=== PATIENT | female | born 1970 | race Asian ===

== ENCOUNTER 2016-06-19 14:42 | Inpatient (IN) | payer BC ==
[~2016-06-19] VITALS: Ht 162.6 cm; Wt 72.6 kg
[2016-06-19 16:24] LABS: *BILIRUBIN,URIN NEGATIVE (NEGATIVE); *BLOOD, URINE 3+ (NEGATIVE); *CLARITY,URINE CLOUDY (CLEAR); *COLOR,URINE YELLOW (YELLOW); *KETONES,URINE NEGATIVE (NEGATIVE); *PROTEIN,URINE TRACE (NEGATIVE); LEUKOCYTE ESTERASE ,URINE NEGATIVE (NEGATIVE); NITRITE, URINE NEGATIVE (NEGATIVE); PH,URINE 5.5 (5.0-8.0); UGLUCOSE NEGATIVE (NEGATIVE)
[2016-06-19 16:30] LABS: BASOPHILS % (AUTO) 0.4 % (0.0-2.0); EOSINOPHILS # (AUTO) 0.1 K/uL (0.0-0.7); EOSINOPHILS % (AUTO) 0.9 % (0.0-7.0); HEMATOCRIT 39.4 % (31.2-41.9); HEMOGLOBIN 13.7 g/dL (10.9-14.3); LYMPHOCYTES # (AUTO) 1.5 K/uL (20.0-40.0); LYMPHOCYTES % (AUTO) 13.2 % (20.5-51.5); MEAN CORPUSCULAR HGB CONC 35 g/dL (32.3-35.6); MONOCYTES # (AUTO) 0.3 K/uL (2.0-10.0); NEUTROPHILS # (AUTO) 9.2 K/uL (1.8-8.9); NEUTROPHILS % (AUTO) 82.5 % (38.5-71.5); PLATELET COUNT (AUTO) 297 K/uL (179-408); RED BLOOD CELL COUNT(AUTO) 4.43 MIL/uL (3.63-4.92); RED CELL DISTRIBUTION WIDTH 12.1 % (12.3-17.7); WHITE BLOOD COUNT (AUTO) 11.1 K/uL (3.8-11.8)
[2016-06-19 16:43] LABS: CREATININE 0.7 mg/dL (0.6-1.3); POTASSIUM 3.6 mmol/L (3.5-5.1)
[2016-06-19 16:49] LABS: ALBUMIN 4.1 g/dL (3.4-5.0); BILIRUBIN,TOTAL 0.5 mg/dL (0.2-1.0); TOTAL PROTEIN, SERUM 7.8 g/dL (6.4-8.2)
[2016-06-19 17:04] LABS: MUCUS,URINE MANY /LPF (0-FEW); RBC,URINE 80-100 /HPF (0-3); SQUAMOUS EPITHELIAL CELL,UR FEW /HPF (NONE SEEN); URINE AMORPHOUS URATE MODERATE /HPF; WBC,URINE 0-3 /HPF (0-3)
[2016-06-19 17:21] LABS: NEUTROPHILS % (MANUAL) 73 % (42-75)
[2016-06-19 17:22] LABS: BAND % (MANUAL) 10 % (0-10); LYMPHOCYTES % (MANUAL) 15 % (20-40); MONOCYTES % (MANUAL) 2 % (2-10); PLATELET ESTIMATE ADEQUATE
--- NOTE | 2016-06-19 18:44 | NUR ---
Dr Murphy at bedside for eval.
[2016-06-19] MEDS ORDERED: KETOROLAC TROMETHAMINE 30 MG INJ IVP ONE (19:15)
[2016-06-19] MEDS ORDERED: KETOROLAC TROMETHAMINE 30 MG INJ ONE (19:26)
--- NOTE | 2016-06-19 19:46 | NUR ---
Ultrasound at bedside
[2016-06-19] MEDS ORDERED: ONDANSETRON IV *ER 4 MG/2 ML VIAL IV ONE (21:15)
[2016-06-19] MEDS ORDERED: MORPHINE SULFATE 4 MG/1 ML DISP.SYRIN IV ONE (21:15)
[2016-06-19] MEDS ORDERED: IV NS 1000 ML 1,000 ML IV PRN (21:26)
[2016-06-19] MEDS ORDERED: MORPHINE SULFATE 4 MG/1 ML DISP.SYRIN ONE (21:26)
[2016-06-19] MEDS ORDERED: ONDANSETRON 4 MG/2 ML VIAL ONE (21:26)
[2016-06-19] MEDS ORDERED: ONDANSETRON 4 MG/2 ML VIAL IV PRN (21:30)
[2016-06-19] MEDS ORDERED: MAGNESIUM HYDROXIDE 30 ML LIQUID UDC PO PRN (21:30)
[2016-06-19] MEDS ORDERED: ACETAMINOPHEN 325 MG TABLET PO PRN (21:30)
[2016-06-19] MEDS ORDERED: TEMAZEPAM 7.5 MG CAPSULE PO PRN (21:30)
[2016-06-19] MEDS ORDERED: Z GUARD REMEDY PASTE 57 GM TUBE TOP PRN (21:30)
[2016-06-19] MEDS ORDERED: MORPHINE SULFATE 2 MG/1 ML DISP.SYRIN IV PRN (21:30)
[2016-06-19 22:00] VITALS: BP 106/64
--- NOTE | 2016-06-19 22:00 | NUR ---
Pt. admitted to Med Surg , under care of Dr. Marley. Admitted for Abdominal Pain Belongs List completed
[2016-06-19] MEDS: IV NS 1000 ML 1,000 ML IV PRN (22:41)
[2016-06-20] MEDS ORDERED: MORPHINE SULFATE 2 MG/1 ML DISP.SYRIN ONE (01:32)
[2016-06-20 04:00] VITALS: BP 106/64
--- NOTE | 2016-06-20 06:00 | NUR ---
admitted last night due to abdominal pain, alert,oriented ambulatory. medicated with morphine and norco for pain.kept npo for possible surgery today, infusing iv fluids, had bm yesterday ,non overnight, voiding to toilet, slept well after morphine given last night, otherwise, no significant changes pain remains the same,no nausea,no vomiting.vss,afebrile.
[2016-06-20] MEDS ORDERED: PANTOPRAZOLE SODIUM 40 MG TABLET.DR PO ONE (06:41)
[2016-06-20] MEDS: HYDROCODONE/APAP 5-325MG TABLET PO PRN ×3 (06:44→16:32)
[2016-06-20] MEDS: IV NS 1000 ML 1,000 ML IV PRN ×2 (06:44→18:57)
[2016-06-20] MEDS ORDERED: HYDROCODONE/APAP 5-325MG TABLET ONE (06:52)
[2016-06-20 06:58] LABS: BASOPHILS % (AUTO) 0.2 % (0.0-2.0); EOSINOPHILS # (AUTO) 0.1 K/uL (0.0-0.7); EOSINOPHILS % (AUTO) 0.5 % (0.0-7.0); HEMATOCRIT 34.4 % (31.2-41.9); HEMOGLOBIN 12.2 g/dL (10.9-14.3); LYMPHOCYTES # (AUTO) 1.4 K/uL (20.0-40.0); LYMPHOCYTES % (AUTO) 12.6 % (20.5-51.5); MEAN CORPUSCULAR HEMOGLOBIN 31.8 uug (24.7-32.8); MEAN CORPUSCULAR HGB CONC 35 g/dL (32.3-35.6); MEAN CORPUSCULAR VOLUME 89.9 fL (75.5-95.3); MONOCYTES # (AUTO) 0.4 K/uL (2.0-10.0); MONOCYTES % (AUTO) 3.8 % (0.0-11.0); NEUTROPHILS # (AUTO) 9.3 K/uL (1.8-8.9); NEUTROPHILS % (AUTO) 82.9 % (38.5-71.5); PLATELET COUNT (AUTO) 259 K/uL (179-408); RED BLOOD CELL COUNT(AUTO) 3.82 MIL/uL (3.63-4.92); RED CELL DISTRIBUTION WIDTH 11.9 % (12.3-17.7); WHITE BLOOD COUNT (AUTO) 11.2 K/uL (3.8-11.8)
[2016-06-20] MEDS ORDERED: PANTOPRAZOLE SODIUM 40 MG TABLET.DR PO SCH (07:00)
[2016-06-20 07:25] LABS: ALBUMIN 3.3 g/dL (3.4-5.0); BILIRUBIN,TOTAL 1.1 mg/dL (0.2-1.0); CALCIUM 8.2 mg/dL (8.5-10.1); CREATININE 0.7 mg/dL (0.6-1.3); MAGNESIUM 1.8 mg/dL (1.8-2.4); PHOSPHOROUS 3.1 mg/dL (2.5-4.9); POTASSIUM 3.6 mmol/L (3.5-5.1); TOTAL PROTEIN, SERUM 6.6 g/dL (6.4-8.2)
[2016-06-20 07:35] LABS: BAND % (MANUAL) 6 % (0-10); LYMPHOCYTES % (MANUAL) 14 % (20-40); MONOCYTES % (MANUAL) 4 % (2-10); NEUTROPHILS % (MANUAL) 76 % (42-75); PLATELET ESTIMATE ADEQUATE
[2016-06-20 12:00] VITALS: BP 122/75
[2016-06-20 16:00] VITALS: BP 121/89
--- NOTE | 2016-06-20 18:54 | NUR ---
PATIENT IN BED WITH AT THE BEDSIDE DURING MY SHIFT. C/O OF ABDOMINAL PAIN, MEDICATED ORDERED. NO S/S OF DISTRESS NOTED. NPO DURING THE DAY UNTIL EVALUATED HER. PATIENT HAVE BEEN DISCHARGE BY DR. COLIN. REPORT WILL BE ENDORSE TO NEXT SHIFT NURSE. SAFETY AND COMFORT PROVIDED BY STAFF. WILL CONTINUE MONITORING.
--- NOTE | 2016-06-20 19:30 | NUR ---
RECEIVED D/C FROM DR. COLIN
--- NOTE | 2016-06-20 20:00 | NUR ---
D/C INSTRUCTION GIVEN . WITH THE PATIENT . IV D/C'D NAME BAND D/C'D. ABDOMINAL PAIN 06/02 Addendum: 06/20/16 at 2101 by ZAC FALLON RN PATIENT REQUESTING FOR PAIN MEDICATION PRESCRIPTION WRITTEN PRESCRIPTION FOR NAPROXEN 500 MG BID PO PRN A T/P PER DR. COLIN. PATIENT VERBALIZED D/C INSTRUCTION. NO FURTHER QUESTIONS AT THIS TIME. PATIENT WAS TAKEN TO [facility] W/C GREG NETTLES
[2016-06-20 20:15] VITALS: BP 110/66
== END 2016-06-20 20:48 | disposition home or self-care (01) | DRG 761 ==
LOC: ER 14:54 → MED 21:53
PROVIDERS: ADMIT Family Medicine; ATTEND Family Medicine
DX: N83.201 Unspecified ovarian cyst, right side (principal); D25.9 Leiomyoma of uterus, unspecified
CPT/HCPCS: 36415; 76856; 83690; 83735; 84100; 84703; 85025; 93005; A4663; J1885; J2270; J2405; J7030